=== PATIENT | male | born 1985 | race Caucasian/White ===

== ENCOUNTER 2023-01-14 22:50 | Emergency (ER) | payer OTHER ==
[~2023-01-14] VITALS: Ht 165.1 cm; Wt 90.7 kg
[2023-01-15 01:47] VITALS: BP 115/76; TEMP 97.8; O2SAT 99
== END 2023-01-15 01:47 | disposition home or self-care (01) ==
LOC: ER 22:52
DX: T43.591A Poisoning by other antipsychotics and neuroleptics, accidental (unintentional), initial encounter (principal); T45.0X1A Poisoning by antiallergic and antiemetic drugs, accidental (unintentional), initial encounter; T44.7X1A Poisoning by beta-adrenoreceptor antagonists, accidental (unintentional), initial encounter; T47.0X1A Poisoning by histamine H2-receptor blockers, accidental (unintentional), initial encounter; R06.02 Shortness of breath; Y92.89 Other specified places as the place of occurrence of the external cause